=== PATIENT | male | born 1965 | race Hispanic/Latino ===

== ENCOUNTER 2023-12-27 10:21 | Observation (INO) | payer OTHER ==
[~2023-12-27] VITALS: Ht 177.8 cm; Wt 136.1 kg
[~2023-12-27 10:21] MED LIST: ASPIRIN81 MG PO
[2023-12-27 11:01] LABS: BASOPHILS # (AUTO) 0.1 (0.0-0.1); BASOPHILS % 0.5 % (0.0-1.0); EOSINOPHILS # (AUTO) 0.3 (0.0-0.4); EOSINOPHILS % 2.7 % (0.0-6.0); HEMATOCRIT 48.2 % (38.2-49.6); HEMOGLOBIN 15.8 g/dL (14.0-18.0); LYMPHOCYTES # (AUTO) 1.2 (1.0-3.2); LYMPHOCYTES % 10.5 % (18.0-39.1); MEAN CORPUSCULAR HEMOGLOBIN 29.2 pg (28-32); MEAN CORPUSCULAR HGB CONC 32.8 g/dL (31-35); MEAN CORPUSCULAR VOLUME 88.9 fL (81-99); MONOCYTES % 8.7 % (4.4-11.3); NEUTROPHILS % 77.2 % (38.7-80.0); PLATELET COUNT 200 x10e3/uL (140-360); RED BLOOD COUNT 5.42 x10e6/uL (4.3-5.7); WHITE BLOOD COUNT 11.67 x10e3/uL (4.8-10.8)
[2023-12-27 11:25] LABS: ALBUMIN/GLOBULIN RATIO 1.2 (0.8-2.0); ANION GAP 13.9 mmol/L (8-16); BILIRUBIN,TOTAL 0.9 mg/dL (0.2-1.2); CALCIUM 8.9 mg/dL (8.4-10.2); CREATININE, SERUM 0.69 mg/dL (0.72-1.25); POTASSIUM 3.9 mmol/L (3.5-5.1); TOTAL PROTEIN 7.4 g/dL (6.5-8.1)
[2023-12-27] MEDS: ASPIRIN 81 MG CHEW TAB PO ONE (13:22)
[2023-12-27 14:35] VITALS: PULSE 54; RESP 16; O2SAT 96
[2023-12-27 14:40] VITALS: BP 143/77; PULSE 56; RESP 17; TEMP 97.8; O2SAT 98
[2023-12-27 16:08] VITALS: BP 143/77; PULSE 56; RESP 17; TEMP 97.8; O2SAT 98
[2023-12-27] MEDS ORDERED: ZYRTEC10 M3 PO (16:54)
[2023-12-27] MEDS ORDERED: AMLODIPINE-OLM1 EAC3 PO (16:54)
[2023-12-27] MEDS ORDERED: PAROXETINE HCL20 MG PO (16:54)
[2023-12-27] MEDS ORDERED: METOPROLOL SUCC25 MG PO (16:54)
[2023-12-27] MEDS ORDERED: CLOPIDOGREL75 MG PO (16:54)
[2023-12-27] MEDS ORDERED: ROSUVASTATIN CA40 MG PO (16:54)
[2023-12-27] MEDS ORDERED: MINOCYCLINE HCL50 MG PO (16:54)
[2023-12-27] MEDS ORDERED: CIALIS5 MG PO (16:54)
[2023-12-27] MEDS ORDERED: BUSPIRONE HCL5 MG PO (16:54)
[2023-12-27] MEDS ORDERED: TYLENOL325 MG PO (16:57)
[2023-12-27] MEDS ORDERED: ATIVAN0.5 MG PO (16:57)
[2023-12-27 20:00] VITALS: BP 147/80; PULSE 60; RESP 20; TEMP 98.6; O2SAT 99
[2023-12-27 21:00] VITALS: BP 147/80; PULSE 60; RESP 20; TEMP 98.6; O2SAT 99
[2023-12-27 21:57] LABS: TROPONIN I 0.006 ng/mL (0-0.300)
[2023-12-27] MEDS: PAROXETINE HCL 20 MG TAB PO SCH (22:32)
[2023-12-27] MEDS: AMLODIPINE BESYLATE 10 MG TAB PO SCH (22:32)
[2023-12-27] MEDS: MINOCYCLINE HCL 50 MG CAP PO SCH (22:32)
[2023-12-27] MEDS: LORATADINE 10 MG TAB PO SCH (22:33)
[2023-12-27] MEDS: ASPIRIN 81 MG CHEW TAB PO SCH (22:33)
[2023-12-27] MEDS: OLMESARTAN 20 MG TAB PO SCH (22:33)
[2023-12-27] MEDS: LORAZEPAM 1 MG TAB PO SCH (22:33)
[2023-12-27] MEDS: METOPROLOL SUCCINATE 25 MG TAB XL PO SCH (22:34)
[2023-12-27] MEDS: BUSPIRONE HCL 10 MG TABLET PO SCH (22:34)
[2023-12-27] MEDS: CLOPIDOGREL BISULFATE 75 MG TAB PO SCH (22:34)
[2023-12-27] MEDS: CRESTOR 10MG PO SCH (22:38)
[2023-12-28] VITALS (10 sets, daily range): BP systolic 125–151; BP diastolic 64–80; PULSE 58–76; RESP 16–20; TEMP 97.7–98.7; O2SAT 92–98
[2023-12-28 06:00] LABS: BASOPHILS # (AUTO) 0.1 (0.0-0.1); BASOPHILS % 0.6 % (0.0-1.0); EOSINOPHILS # (AUTO) 0.3 (0.0-0.4); EOSINOPHILS % 3.2 % (0.0-6.0); HEMATOCRIT 47.3 % (38.2-49.6); HEMOGLOBIN 15.1 g/dL (14.0-18.0); LYMPHOCYTES # (AUTO) 1.3 (1.0-3.2); LYMPHOCYTES % 12.7 % (18.0-39.1); MEAN CORPUSCULAR HEMOGLOBIN 28.7 pg (28-32); MEAN CORPUSCULAR HGB CONC 31.9 g/dL (31-35); MEAN CORPUSCULAR VOLUME 89.8 fL (81-99); MONOCYTES # (AUTO) 1.1 (0.2-0.8); NEUTROPHILS # (AUTO) 7.7 (2.1-6.9); PLATELET COUNT 203 x10e3/uL (140-360); RED BLOOD COUNT 5.27 x10e6/uL (4.3-5.7); RED CELL DISTRIBUTION WIDTH 14.1 % (11.7-14.4); WHITE BLOOD COUNT 10.48 x10e3/uL (4.8-10.8)
[2023-12-28 06:32] LABS: ANION GAP 12.6 mmol/L (8-16); CALCIUM 8.6 mg/dL (8.4-10.2); CREATININE, SERUM 0.64 mg/dL (0.72-1.25); POTASSIUM 3.6 mmol/L (3.5-5.1)
[2023-12-28 06:57] LABS: TROPONIN I 0.005 ng/mL (0-0.300)
[2023-12-28] MEDS ORDERED: DICLOFENAC SODI75 MG PO (08:45)
[2023-12-28] MEDS: ACETAMINOPHEN 325 MG TAB PO PRN (09:20)
[2023-12-28] MEDS: SODIUM CHLORIDE 0.9% 1000ML 1,000 ML IV SCH ×2 (11:44→18:03)
[2023-12-28] MEDS ORDERED: HEPARIN SOD (PORCINE) 1000 UNIT/ML 30ML ONE (13:35)
[2023-12-28] MEDS ORDERED: LIDOCAINE HCL 2% LOCAL 20 ML VIAL ONE (13:35)
[2023-12-28] MEDS ORDERED: HEPARIN SOD/SOD CHLORIDE 2,000 ML ONE (13:35)
[2023-12-28] MEDS ORDERED: SODIUM CHLORIDE 0.9% 1000ML 1,000 ML ONE (13:36)
[2023-12-28] MEDS ORDERED: NITROGLYCERIN/D5W 200 MCG/ML 250 ML ONE (13:36)
[2023-12-28] MEDS ORDERED: IOPAMIDOL 370 MG/ML 100 ML INFUS..BTL INJ ONE (13:36)
[2023-12-28] MEDS ORDERED: FENTANYL CITRATE/PF 100MCG/2 ML INJ ONE ×2 (13:47→14:38)
[2023-12-28] MEDS ORDERED: MIDAZOLAM HCL 2 MG/2 ML VIAL ONE ×2 (13:47→14:23)
[2023-12-28] MEDS: LORAZEPAM 1 MG TAB PO SCH (21:24)
[2023-12-29] VITALS: BP 154/74; PULSE 62; RESP 20; TEMP 98; O2SAT 95
[2023-12-29 04:00] VITALS: BP 126/75; PULSE 51; RESP 19; TEMP 98.2; O2SAT 96
[2023-12-29 08:37] VITALS: BP 133/72; PULSE 58; RESP 19; TEMP 97.8; O2SAT 96
[2023-12-29 08:56] VITALS: BP 133/72; PULSE 58; RESP 16; TEMP 97.8; O2SAT 93
[2023-12-29 09:02] VITALS: PULSE 62; RESP 18; O2SAT 94
[2023-12-29 11:30] VITALS: BP 132/69; PULSE 61; RESP 17; TEMP 98.4; O2SAT 99
== END 2023-12-29 11:08 | disposition home or self-care (01) ==
LOC: ER 10:26 → ERHOLD 12:06 → MED/SURG3 14:02
PROVIDERS: ADMIT Internal Medicine; ATTEND Internal Medicine
DX: I25.110 Atherosclerotic heart disease of native coronary artery with unstable angina pectoris (principal); T82.897A Other specified complication of cardiac prosthetic devices, implants and grafts, initial encounter; Z95.5 Presence of coronary angioplasty implant and graft; Y84.0 Cardiac catheterization as the cause of abnormal reaction of the patient, or of later complication, without mention of misadventure at the time of the procedure; I25.2 Old myocardial infarction; I35.0 Nonrheumatic aortic (valve) stenosis; I10 Essential (primary) hypertension; E78.5 Hyperlipidemia, unspecified; E66.01 Morbid (severe) obesity due to excess calories; Z68.41 Body mass index [BMI] 40.0-44.9, adult; G47.33 Obstructive sleep apnea (adult) (pediatric); M19.91 Primary osteoarthritis, unspecified site; Z87.891 Personal history of nicotine dependence; Z11.52 Encounter for screening for COVID-19; Z79.899 Other long term (current) drug therapy; Z79.02 Long term (current) use of antithrombotics/antiplatelets; Z79.82 Long term (current) use of aspirin
CPT/HCPCS: 36415 ×2; 71045; 76937; 80048; 80053; 82550 ×2; 84484 ×2; 85025 ×2; 93005; 93458; 94799 ×3; 99284; C1760; C1769; C1887; G0378 ×3; J1644; J2001; J2250; J3010; J7030; Q9967; U0002; 99152; 99153